=== PATIENT | male | born 1960 ===

== ENCOUNTER 2018-03-06 06:57 | Day surgery (SDC) | payer BC ==
[2018-03-06] MEDS ORDERED: ROCURONIUM BROMIDE 10 MG/ML SOL IV ONE (07:59)
[2018-03-06] MEDS ORDERED: SUCCINYLCHOLINE CHLORIDE 20 MG/ML SOL IV ONE (07:59)
[2018-03-06] MEDS ORDERED: FENTANYL 100MCG/2ML SOL ONE ×2 (08:02→08:31)
[2018-03-06] MEDS ORDERED: PROPOFOL 10 MG/ML EMU IV ONE (08:03)
[2018-03-06] MEDS ORDERED: LIDOCAINE HCL 1% MPF 30 SOL ONE (08:03)
[2018-03-06] MEDS ORDERED: BUPIVACAINE LIPOSOME 20 ML SUS ONE (08:11)
[2018-03-06] MEDS ORDERED: EPHEDRINE SULFATE 50 MG/ML SOL ONE (08:35)
[2018-03-06] MEDS ORDERED: HYDROGEN PEROXIDE 240 ML SOL TOP ONE (08:40)
[2018-03-06 09:26] VITALS: TEMP 97.3
[2018-03-06 09:54] VITALS: RESP 20
[2018-03-06 10:09] VITALS: BP 138/91; PULSE 81; O2SAT 99
== END 2018-03-06 11:20 | disposition home or self-care (01) ==
LOC: SURG 06:57
PROVIDERS: ATTEND Surgery
DX: K60.3 Anal fistula (principal)
CPT/HCPCS: J0330; J3010; A9270-GY; J2001; J2704; J3490